=== PATIENT | female | born 1965 | race Caucasian/White ===

== ENCOUNTER 2017-06-02 13:22 | Emergency (ER) | payer BC ==
[~2017-06-02] VITALS: Ht 165.1 cm; Wt 61.5 kg
[2017-06-02] MEDS ORDERED: IOHEXOL 350 MG/ML 10 ML VIAL (for RAD DIAG) IVCONTRAST ONE (13:23)
[2017-06-02 13:24] VITALS: BP 133/81; PULSE 93; RESP 18; TEMP 98.8; O2SAT 97
--- NOTE | 2017-06-02 14:36 | RADRPT ---
EXAM DATE/TIME: 06/02/2017 13:53 [facility] COMPARISON: No previous studies available for comparison. INDICATIONS : Dysphagia for three days. Pressure near C5-6 level. MEDICAL HISTORY : None. SURGICAL HISTORY : None. ENCOUNTER: Initial ACUITY: 3 days PAIN SCORE: 1/10 LOCATION: esophagus FINDINGS: Two view examination of the soft tissues of the neck demonstrates the hypopharyngeal airway to have a grossly normal configuration. The trachea is midline. No radiopaque foreign bodies are seen. CONCLUSION: Negative Chase Keene MD FACR on June 02, 2017 at 14:33 Board Certified Radiologist. This report was verified electronically.
--- NOTE | 2017-06-02 15:37 | PD ---
HPI Chief Complaint: ENT Complaint Time Seen by Provider: 15:14 Travel History International Travel<30 days: No Contact w/Intl Traveler<30days: No Traveled to known affect area: No History of Present Illness HPI 52-year-old female patient with history of no significant past medical issues, presents to the ER with 4 days history of feeling like her throat is swollen, having difficulty swallowing, feeling like she is short of breath, feels like it catches. She was seen by urgent care and sent in for further evaluation. She denies any fevers, injuries, or any other symptoms. Modifying Factors: None Associated Signs & Symptoms: Throat swelling, pain, discomfort with swallowing Risk Factors: None PFSH Past Medical History Medical History: Denies Significant Hx Tetanus Vaccination: > 5 Years Influenza Vaccination: Yes ?: Not Past Surgical History Surgical History: No Previous Surgery Social History Alcohol Use: Yes (socially) Tobacco Use: No Substance Use: No Allergies-Medications (Allergen,Severity, Reaction): Coded Allergies: No Known Allergies (Unverified , 06/02/17) Reported Meds & Prescriptions Reported Meds & Active Scripts Active No Active Prescriptions or Reported Medications Review of Systems Except as stated in HPI: all other systems reviewed are Neg Physical Exam Narrative GENERAL: Well-developed middle age white female patient currently in no acute distress. Awake and oriented 3. SKIN: Focused skin assessment warm/dry. HEAD: Atraumatic. Normocephalic. EYES: Pupils equal and round. No scleral icterus. No injection or drainage. ENT: Mucosa pink and moist. No erythema or exudates. No uvular edema. No uvular , palatal, or tonsillar deviation. Airway patent. No drooling. NECK: Trachea midline. No JVD. No palpable lymphadenopathy or masses. She is not tender palpation right over the area of the thyroid cartilage. I do not palpate any obvious edema. CARDIOVASCULAR: Regular rate and rhythm. No murmur appreciated. RESPIRATORY: No accessory muscle use. Clear to auscultation. Breath sounds equal bilaterally. GASTROINTESTINAL: Abdomen soft, non-tender, nondistended. Hepatic and splenic margins not palpable. MUSCULOSKELETAL: No obvious deformities. No clubbing. No cyanosis. No edema. NEUROLOGICAL: Awake and alert. No obvious cranial nerve deficits. Motor grossly within normal limits. Normal speech. PSYCHIATRIC: Appropriate mood and affect; insight and judgment normal. Data Data Last Documented VS Vital Signs Date Time Temp Pulse Resp B/P (MAP) Pulse Ox O2 Delivery O2 Flow Rate FiO2 06/02/17 16:30 79 17 108/70 (83) 100 Room Air 06/02/17 13:24 98.8 Orders Orders Soft Tissue Neck (06/02/17 ) Complete Blood Count With Diff (06/02/17 15:33) Basic Metabolic Panel (Bmp) (06/02/17 15:33) Ct Soft Tiss Neck W Iv Cont (06/02/17 15:33) Group A Rapid Strep Screen (06/02/17 15:37) Labs Laboratory Tests Test 06/02/17 15:47 White Blood Count 11.5 TH/MM3 Red Blood Count 4.14 MIL/MM3 Hemoglobin 12.7 GM/DL Hematocrit 38.2 % Mean Corpuscular Volume 92.3 FL Mean Corpuscular Hemoglobin 30.8 PG Mean Corpuscular Hemoglobin Concent 33.3 % Red Cell Distribution Width 12.3 % Platelet Count 286 TH/MM3 Mean Platelet Volume 8.0 FL Neutrophils (%) (Auto) 72.9 % Lymphocytes (%) (Auto) 17.9 % Monocytes (%) (Auto) 8.6 % Eosinophils (%) (Auto) 0.4 % Basophils (%) (Auto) 0.2 % Neutrophils # (Auto) 8.4 TH/MM3 Lymphocytes # (Auto) 2.1 TH/MM3 Monocytes # (Auto) 1.0 TH/MM3 Eosinophils # (Auto) 0.1 TH/MM3 Basophils # (Auto) 0.0 TH/MM3 CBC Comment DIFF FINAL Differential Comment Blood Urea Nitrogen 9 MG/DL Creatinine 0.66 MG/DL Random Glucose 93 MG/DL Calcium Level 9.5 MG/DL Sodium Level 139 MEQ/L Potassium Level 3.9 MEQ/L Chloride Level 103 MEQ/L Carbon Dioxide Level 30.5 MEQ/L Anion Gap 6 MEQ/L Estimat Glomerular Filtration Rate 94 ML/MIN MDM Medical Decision Making Medical Screen Exam Complete: Yes Emergency Medical Condition: Yes Medical Record Reviewed: Yes Interpretation(s) Laboratory Tests Test 06/02/17 15:47 White Blood Count 11.5 TH/MM3 (4.0-11.0) Neutrophils (%) (Auto) 72.9 % (16.0-70.0) Monocytes (%) (Auto) 8.6 % (0.0-8.0) Neutrophils # (Auto) 8.4 TH/MM3 (1.8-7.7) Monocytes # (Auto) 1.0 TH/MM3 (0-0.9) Last 24 hours Impressions Soft Tissue Neck X-Ray 06/02/17 0000 Signed Impressions: Service Date/Time: Friday, June 02, 2017 13:53 - CONCLUSION: Negative Chase Keene MD FACR Differential Diagnosis Throat swelling, discomfort, difficulty with swallowing: Epiglottitis versus soft tissue mass versus pharyngitis Narrative Course Lab work is unremarkable initial soft tissue x-ray was unremarkable. I do not see any obvious findings on initial evaluation of her throat. However, she is tender to palpation around the thyroid cartilage area and CAT scan was ordered for further evaluation. Physician Communication Physician Communication Case is signed out to Dr. Helm at 5 PM pending CAT scan. Disposition based on CAT scan. Diagnosis Primary Impression: Throat discomfort Scripts No Active Prescriptions or Reported Meds Condition: Stable Tony Fernandes MD Jun 02, 2017 15:37
[2017-06-02 16:30] VITALS: BP 108/70; PULSE 79; RESP 17; O2SAT 100
[2017-06-02 16:41] LABS: AUTOMATED NEUTROPHIL # 8.4 TH/MM3 (1.8-7.7); BASOPHIL % 0.2 % (0.0-2.0); EOSINOPHIL # 0.1 TH/MM3 (0-0.4); EOSINOPHIL % 0.4 % (0.0-4.0); HEMATOCRIT 38.2 % (35.0-46.0); HEMO FLAGS DIFF FINAL; LYMPH % 17.9 % (9.0-44.0); LYMPHOCYTE # 2.1 TH/MM3 (1.0-4.8); MEAN CELL VOLUME 92.3 FL (80.0-100.0); MEAN CORPUSCULAR HEMOGLOBIN 30.8 PG (27.0-34.0); MEAN CORPUSCULAR HGB CONC 33.3 % (32.0-36.0); MONO % 8.6 % (0.0-8.0); NEUT % 72.9 % (16.0-70.0); PLATELET COUNT 286 TH/MM3 (150-450); RED BLOOD COUNT 4.14 MIL/MM3 (4.00-5.30); RED CELL DISTRIBUTION WIDTH 12.3 % (11.6-17.2); WHITE BLOOD COUNT 11.5 TH/MM3 (4.0-11.0)
[2017-06-02 17:01] LABS: BICARBONATE 30.5 MEQ/L (21.0-32.0); POTASSIUM 3.9 MEQ/L (3.5-5.1)
--- NOTE | 2017-06-02 17:46 | RADRPT ---
EXAM DATE/TIME: 06/02/2017 17:16 [facility] COMPARISON: No previous studies available for comparison. INDICATIONS : Anterior located lump on neck. IV CONTRAST: 75 cc Omnipaque 350 (iohexol) IV RADIATION DOSE: 15.79 CTDIvol (mGy) MEDICAL HISTORY : None SURGICAL HISTORY : None. ENCOUNTER: Initial ACUITY: 3 days PAIN SCALE: 4/10 LOCATION: anterior neck. TECHNIQUE: Volumetric scanning of the neck was performed. Using automated exposure control and adjustment of th e mA and/or kV according to patient size, radiation dose was kept as low as reasonably achievable to obtain optimal diagnostic quality images. DICOM format image data is available electronically for r eview and comparison. FINDINGS: NASOPHARYNX: The nasopharyngeal airway has a normal configuration. No mucosal thickening or mass is seen. OROPHARYNX: The intrinsic muscles of the tongue are symmetric. The tonsillar pillars are intact. The prevertebr al soft tissues are not thickened. LARYNX: The supraglottic, glottic, and infraglottic structures are intact. PARAPHARYNGEAL: The parapharyngeal space is intact. SALIVARY GLANDS: The parotid and submandibular glands are intact. LYMPH NODES: No enlarged or necrotic-appearing nodes. THYROID: 2.2 cm mass left lobe of the thyroid BONES: Unremarkable. CONCLUSION: 2.2 cm mass left lobe of the thyroid. Chase Keene MD FACR on June 02, 2017 at 17:40 Board Certified Radiologist. This report was verified electronically.
[2017-06-02] MEDS ORDERED: TYLE325T PO (18:53)
--- NOTE | 2017-06-02 18:53 | PD ---
Physical Exam Narrative Received sign out from previous team to follow up with CT scan results. 52yo F with left neck pain for a few days. Throat is clear, nonerythematous, no exudate. Patent airway. Speaking in complete sentences and not in distress. + TTP left anterior neck. Labs reviewed, WBC 11.5. BMP unremarkable. Xray soft tissue neck negative. CT soft tissue neck showed 2.2cm mass left lobe of the thyroid. Pt given a copy of her CT scan and instructed to follow up for possible biopsy of her thyroid mass. Return precautions given. Data Data Last Documented VS Vital Signs Date Time Temp Pulse Resp B/P (MAP) Pulse Ox O2 Delivery O2 Flow Rate FiO2 06/02/17 16:30 79 17 108/70 (83) 100 Room Air 06/02/17 13:24 98.8 Orders Orders Soft Tissue Neck (06/02/17 ) Complete Blood Count With Diff (06/02/17 15:33) Basic Metabolic Panel (Bmp) (06/02/17 15:33) Ct Soft Tiss Neck W Iv Cont (06/02/17 15:33) Group A Rapid Strep Screen (06/02/17 15:37) Iohexol 350 Inj (Omnipaque 350 Inj) (06/02/17 13:23) Labs Laboratory Tests Test 06/02/17 15:47 White Blood Count 11.5 TH/MM3 Red Blood Count 4.14 MIL/MM3 Hemoglobin 12.7 GM/DL Hematocrit 38.2 % Mean Corpuscular Volume 92.3 FL Mean Corpuscular Hemoglobin 30.8 PG Mean Corpuscular Hemoglobin Concent 33.3 % Red Cell Distribution Width 12.3 % Platelet Count 286 TH/MM3 Mean Platelet Volume 8.0 FL Neutrophils (%) (Auto) 72.9 % Lymphocytes (%) (Auto) 17.9 % Monocytes (%) (Auto) 8.6 % Eosinophils (%) (Auto) 0.4 % Basophils (%) (Auto) 0.2 % Neutrophils # (Auto) 8.4 TH/MM3 Lymphocytes # (Auto) 2.1 TH/MM3 Monocytes # (Auto) 1.0 TH/MM3 Eosinophils # (Auto) 0.1 TH/MM3 Basophils # (Auto) 0.0 TH/MM3 CBC Comment DIFF FINAL Differential Comment Blood Urea Nitrogen 9 MG/DL Creatinine 0.66 MG/DL Random Glucose 93 MG/DL Calcium Level 9.5 MG/DL Sodium Level 139 MEQ/L Potassium Level 3.9 MEQ/L Chloride Level 103 MEQ/L Carbon Dioxide Level 30.5 MEQ/L Anion Gap 6 MEQ/L Estimat Glomerular Filtration Rate 94 ML/MIN MDM Supervised Visit with NICO: No Diagnosis Primary Impression: Thyroid mass Patient Instructions: General Instructions Departure Forms: Tests/Procedures Additional Instruction: Please follow up with your primary care physician for further evaluation of your thyroid mass. Return to the ED if symptoms worsen. Med/Other Pt SpecificInfo: Prescription(s) given Scripts Acetaminophen (Tylenol) 325 Mg Tab 650 MG PO Q6H Y for PAIN SCALE 1 TO 4, #20 TAB 0 Refills Prov: Ashley Helm DO 06/02/17 Disposition: 01 DISCHARGE HOME Condition: Stable Ashley Helm DO Jun 02, 2017 18:53
[2017-06-02 18:59] VITALS: BP 137/87; PULSE 79; RESP 17; O2SAT 100
== END 2017-06-02 19:05 | disposition home or self-care (01) ==
LOC: NEPD 13:22
DX: R22.1 Localized swelling, mass and lump, neck (principal)
CPT/HCPCS: 70360; 70491; 80048; 85025; 87081; 87880; 99284; Q9967